=== PATIENT | male | born 1955 | race African-American/Black ===

== ENCOUNTER 2017-01-09 06:57 | Emergency (ER) | payer SELFPAY ==
[~2017-01-09] VITALS: Ht 177.8 cm; Wt 85.0 kg
[2017-01-09 07:02] VITALS: TEMP 36.7
[2017-01-09] MEDS ORDERED: ONDANSETRON INJ 2 MG/ML 2 ML VIAL IV STA ×2 (07:25→10:20)
[2017-01-09] MEDS ORDERED: SODIUM CHLORIDE 0.9% 1000ML 2,000 ML IV STA (07:25)
[2017-01-09] MEDS ORDERED: SODIUM CHLORIDE 0.9% 1000ML 1,000 ML IV STA (07:25)
[2017-01-09] MEDS ORDERED: PRLSR20 PO (07:34)
[2017-01-09] MEDS ORDERED: LISI20TA3 PO (07:34)
[2017-01-09] MEDS ORDERED: DIPH-437 PO (07:34)
[2017-01-09] MEDS ORDERED: NAPR1TAB9 PO (07:34)
[2017-01-09 07:36] LABS: BASO % 1.3 %; BASO ABS # 0.07 K/uL (0-0.2); COMPLETE YES; EOS % 1.8 %; HEMATOCRIT 50.5 % (42-52); IG% 0.2 %; LYMPH ABS # 2.41 K/uL (1.2-3.4); MEAN CELL VOLUME 91.3 fL (80-100); MEAN CORPUSCULAR HEMOGLOBIN 33.3 pg (25-34); MEAN CORPUSCULAR HGB CONC 36.4 g/dl (32-36); MEAN PLATELET VOLUME 10.6 fL (7.4-10.4); MONO % 9.6 %; NEUT % 44.1 %; PLATELET COUNT 262 K/uL (130-400); RED BLOOD COUNT 5.53 M/uL (4.7-6.1)
[2017-01-09 07:57] LABS: BUN/CREATININE RATIO 13.9 (10-20); CALCIUM 9.5 mg/dl (8.5-10.1); CREATININE 1.3 mg/dl (0.60-1.40); POTASSIUM 3.9 mmol/L (3.5-5.1)
--- NOTE | 2017-01-09 08:07 | DIAGNOSTIC IMAGING REPORT ---
PA CHEST WITH ABDOMINAL SERIES CLINICAL HISTORY: Nausea and vomiting. Diarrhea. FINDINGS: A PA chest radiograph is obtained. No prior studies are available for comparison at the time of dictation. The examination is degraded by apical lordotic positioning. The heart is top normal for projection. There is atherosclerotic calcification of the thoracic aorta. The lungs appear hyperinflated and hyperlucent with flattening the diaphragm suggesting obstructive physiology. Minimal bibasilar atelectasis is observed. No airspace consolidation, large pleural effusion, or pneumothorax is seen. The bony thorax is grossly intact. Supine and erect abdominal radiographs are obtained. No prior studies are available for comparison at the time of dictation. There is a nonobstructed abdominal bowel gas pattern. Mild to moderate colonic fecal retention is observed. No intraperitoneal free air is seen. There are no abnormal abdominal calcifications. Surgical clips project over the pelvis. The lumbosacral spine and bony pelvis appear intact. IMPRESSION: 1. Findings suggest obstructive physiology. No acute cardiopulmonary abnormality is seen. 2. Nonobstructed abdominal bowel gas pattern noting mild to moderate colonic fecal retention. Electronically signed by: Jose Antonio Paulson M.D. 01/09/2017 8:06 AM Dictated Date/Time: 01/09/2017 8:03 AM
[2017-01-09 08:08] LABS: BETA-HYDROXYBUTYRATE 0.94 mg/dL (0.2-2.81)
[2017-01-09] MEDS ORDERED: LISINOPRIL 20 MG TAB PO STA (09:47)
--- NOTE | 2017-01-09 11:40 | EMERGENCY ROOM VISIT NOTE ---
History First contact with patient: 07:08 Chief Complaint: VOMITING Stated Complaint: VOMITING Nursing Triage Summary: Patient arrived by ambulance states that he has had n/v/d for 3 days unable to keep his blood pressure medications down. History of Present Illness Patient is a 61-year-old -[place] male who presents to the emergency department by BLS ambulance for evaluation of nausea, vomiting and diarrhea 3 days. 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 He states that there has been a GI illness going through the operating room staff. He states that Thursday evening, 4 nights ago, he came home from work and his stomach was upset. He states he vomited started vomiting Thursday morning. He reports multiple episodes of vomiting with a few episodes of diarrhea. He reports feeling waves of nausea/queasiness. He denies any real abdominal discomfort. He tried sipping on clear liquids including Gatorade. He tried taking Prilosec. He states that he had not vomited for some time, and tried to take his lisinopril this morning, but vomited it up. He reports that he has not had his antihypertensive for several days. He denies any melena, hematochezia or hematemesis. He denies feeling feverish or experiencing chills. He denies any chest pain, palpitations or shortness of breath. No headache, lightheadedness or dizziness. No urinary symptoms. He rates his discomfort a 0/10. Review of Systems Review of systems as per HPI. All other systems reviewed were negative. 10 systems reviewed. Past Medical/Surgical History Medical Problems: (1) History of prostate cancer (2) Hypertension (3) Seasonal allergies Surgical Problems: (1) Amputation finger The patient does not have any old records at our facility for review. Social History Smoking Status: Current Every Day Smoker (one pack of cigarettes per day) Alcohol Use: occasionally Housing Status: lives alone Occupation Status: employed Current/Historical Medications Scheduled Acetaminophen/Diphenhydramine (Tylenol Pm), 1 TAB PO HS Lisinopril (Prinivil), 20 MG PO QAM Naproxen (Aleve), 220 MG PO BID Omeprazole (Prilosec), 20 MG PO DAILY Allergies Coded Allergies: No Known Allergies (Unverified , 01/09/17) Physical Exam Vital Signs Date Time Temp Pulse Resp B/P Pulse Ox O2 Delivery O2 Flow Rate FiO2 01/09/17 13:33 98 16 168/99 93 Room Air 01/09/17 11:45 102 15 149/88 93 Room Air 01/09/17 10:20 112 18 164/111 95 Room Air 01/09/17 09:13 96 16 182/95 90 Room Air 01/09/17 08:13 100 20 156/83 97 Room Air 01/09/17 07:08 135 01/09/17 07:02 36.7 128 20 181/130 96 Room Air Physical Exam CONSTITUTIONAL: Patient is a pleasant, well-appearing 61-year-old - [place] male who is awake and alert and in no acute distress. He is noted to be tachycardic with a heart rate in the 110s to 120s, blood pressure 181/130 on arrival. EYES: Pupils equal, round, reactive to light and accommodation. EOMs intact without nystagmus. Sclera are anicteric. ENT: Tympanic membranes intact, with normal landmarks. External canals are clear. Oral and nasopharynx are clear. Mucous membranes are moist, no lesions , tongue and gums appear normal. CARDIOVASCULAR: Tachycardic rate and rhythm, with normal S1 and S2, no murmur or gallop or rub is heard. No carotid bruits auscultated. No JVD. Peripheral pulses easy to palpable. RESPIRATORY: Breath sounds equal and clear to auscultation without wheezes, rales, or rhonchi heard. Full and equal chest expansion without accessory muscle use or retractions. GI: Bowel sounds are present. Abdomen is soft, nontender, nondistended. No organomegaly. No pulsatile masses. No guarding or rebound. MUSCULOSKELETAL: Full range of motion of extremities x 4 with good strength. No cyanosis, edema, joint tenderness or swelling. No deformity. INTEGUMENTARY: No lesions or rash, normal skin turgor. NEUROLOGICAL: Alert, oriented, and cooperative. Cranial nerves, sensation and strength grossly intact. Pupils round, equal, and react to light, EOMs are full. LYMPH: No lymphadenopathy. Medical Decision & Procedures ER Provider Diagnostic Interpretation: PA CHEST WITH ABDOMINAL SERIES CLINICAL HISTORY: Nausea and vomiting. Diarrhea. FINDINGS: A PA chest radiograph is obtained. No prior studies are available for comparison at the time of dictation. The examination is degraded by apical lordotic positioning. The heart is top normal for projection. There is atherosclerotic calcification of the thoracic aorta. The lungs appear hyperinflated and hyperlucent with flattening the diaphragm suggesting obstructive physiology. Minimal bibasilar atelectasis is observed. No airspace consolidation, large pleural effusion, or pneumothorax is seen. The bony thorax is grossly intact. Supine and erect abdominal radiographs are obtained. No prior studies are available for comparison at the time of dictation. There is a nonobstructed abdominal bowel gas pattern. Mild to moderate colonic fecal retention is observed. No intraperitoneal free air is seen. There are no abnormal abdominal calcifications. Surgical clips project over the pelvis. The lumbosacral spine and bony pelvis appear intact. IMPRESSION: 1. Findings suggest obstructive physiology. No acute cardiopulmonary abnormality is seen. 2. Nonobstructed abdominal bowel gas pattern noting mild to moderate colonic fecal retention. Laboratory Results 01/09/17 07:05 Red Blood Count 5.53, Mean Corpuscular Volume 91.3, Mean Corpuscular Hemoglobin 33.3, Mean Corpuscular Hemoglobin Concent 36.4, Mean Platelet Volume 10.6, Neutrophils (%) (Auto) 44.1, Lymphocytes (%) (Auto) 43.0, Monocytes (%) (Auto) 9.6, Eosinophils (%) (Auto) 1.8, Basophils (%) (Auto) 1.3, Neutrophils # (Auto) 2.47, Lymphocytes # (Auto) 2.41, Monocytes # (Auto) 0.54, Eosinophils # (Auto) 0.10, Basophils # (Auto) 0.07 01/09/17 07:05 Test 01/09/17 07:05 01/09/17 13:28 White Blood Count 5.60 K/uL (4.8-10.8) Red Blood Count 5.53 M/uL (4.7-6.1) Hemoglobin 18.4 g/dL (14.0-18.0) Hematocrit 50.5 % (42-52) Mean Corpuscular Volume 91.3 fL (80-100) Mean Corpuscular Hemoglobin 33.3 pg (25-34) Mean Corpuscular Hemoglobin Concent 36.4 g/dl (32-36) Platelet Count 262 K/uL (130-400) Mean Platelet Volume 10.6 fL (7.4-10.4) Neutrophils (%) (Auto) 44.1 % Lymphocytes (%) (Auto) 43.0 % Monocytes (%) (Auto) 9.6 % Eosinophils (%) (Auto) 1.8 % Basophils (%) (Auto) 1.3 % Neutrophils # (Auto) 2.47 K/uL (1.4-6.5) Lymphocytes # (Auto) 2.41 K/uL (1.2-3.4) Monocytes # (Auto) 0.54 K/uL (0.11-0.59) Eosinophils # (Auto) 0.10 K/uL (0-0.5) Basophils # (Auto) 0.07 K/uL (0-0.2) RDW Standard Deviation 46.2 fL (36.4-46.3) RDW Coefficient of Variation 13.7 % (11.5-14.5) Immature Granulocyte % (Auto) 0.2 % Immature Granulocyte # (Auto) 0.01 K/uL (0.00-0.02) Anion Gap 14.0 mmol/L (3-11) Est Creatinine Clear Calc Drug Dose 60.1 ml/min Estimated GFR () 67.3 Estimated GFR (Non- 58.1 BUN/Creatinine Ratio 13.9 (10-20) Calcium Level 9.5 mg/dl (8.5-10.1) Total Bilirubin 0.9 mg/dl (0.2-1) Aspartate Amino Transf (AST/SGOT) 158 U/L (15-37) Alanine Aminotransferase (ALT/SGPT) 134 U/L (12-78) Alkaline Phosphatase 91 U/L (45-117) Total Protein 8.5 gm/dl (6.4-8.2) Albumin 4.2 gm/dl (3.4-5.0) Globulin 4.3 gm/dl (2.5-4.0) Albumin/Globulin Ratio 1.0 (0.9-2) Lipase 56 U/L (73-393) Beta-Hydroxybutyric Acid 0.94 mg/dL (0.2-2.81) Chemistry Specimen Hemolysis Bedside Glucose 220 mg/dl (70-99) Medications Administered Medications (Trade) Dose Ordered Sig/Steve Route Start Time Stop Time Status Last Admin Dose Admin Sodium Chloride 2,000 ml @ 999 mls/hr Q2H1M STAT IV 01/09/17 07:25 01/09/17 09:25 DC 01/09/17 07:25 999 MLS/HR Sodium Chloride (Nss 1000ml) 1,000 ml @ 250 mls/hr Q4H STAT IV 01/09/17 07:25 01/09/17 11:24 DC 01/09/17 08:28 250 MLS/HR Ondansetron HCl (Zofran Inj) 4 mg NOW STAT IV 01/09/17 07:25 01/09/17 07:27 DC 01/09/17 07:37 4 MG Lisinopril (Zestril Tab) 20 mg NOW STAT PO 01/09/17 09:47 01/09/17 09:48 DC 01/09/17 10:20 20 MG Ondansetron HCl (Zofran Inj) 4 mg NOW STAT IV 01/09/17 10:20 01/09/17 10:21 DC 01/09/17 10:39 4 MG Ondansetron HCl (ZOFRAN ODT 4MG Home Pack) 1 homepack UD ONCE PO 01/09/17 11:45 01/09/17 11:46 DC 01/09/17 11:47 1 HOMEPACK Promethazine HCl (Phenergan 25MG Home Pack) 1 homepack UD ONCE PO 01/09/17 11:45 01/09/17 11:46 DC 01/09/17 11:47 1 HOMEPACK Insulin Human Regular (novoLIN-R U-100 PER UNIT) 10 units NOW STAT SC 01/09/17 12:20 01/09/17 12:21 DC 01/09/17 12:34 10 UNITS ECG Indication: tachycardia Rate (beats per minute): 120 Rhythm: sinus tachycardia Findings: RBBB Comparison ECG Date: no prior available Change: Possible left atrial enlargement, right bundle-branch block, left anterior fascicular block, nonspecific T-wave abnormality. ED Course The patient was seen and evaluated as above. He has no old records at our facility for review. IV access was obtained. Laboratory studies were collected. He was medicated with a 2 L bolus of normal saline solution, then 250 mL per hour. He was medicated with Zofran 4 mg IV 2. Urine dip, CBC with differential, CMP and lipase were drawn. Acute abdominal series was obtained. EKG had been performed prior to provide her assessment of the patient due to the patient's tachycardia. Findings are as noted above. EKG was reviewed with attending physician. Laboratory studies revealed a normal white count at 5600, with no left shift or bandemia. H&H 18 and 50, platelet count 262,000. Electrolytes sodium 137, potassium 3.9, chloride 97, carbon dioxide 26, BUN 18 and creatinine 1.3. He was noted to be hyperglycemic with a blood sugar of 342 and chemistry. He has slight, nonspecific elevation of his transaminases, remainder of his liver functions are normal. Lipase is not indicative of acute pancreatitis. Urine dip noted 1+ protein and 1+ glucose, negative ketones. No other indicators for infection. Acute abdominal series was obtained. Findings were consistent with pulmonary obstructive pathology, there is no acute cardiopulmonary abnormality noted. Nonobstructive abdominal bowel gas pattern noted [id number] colonic fecal retention. Postsurgical changes were noted. All laboratory and diagnostic imaging studies were reviewed with attending physician. With regards to his elevated blood sugar, he was given Regular Insulin 10 units subcutaneous. His blood sugar was discussed with him. He does report being diagnosed with diabetes in the past, and was placed on metformin, however this caused low blood sugar and his doctor told him to discontinue it. Patient reports that his blood sugars have otherwise been stable. The patient was noted to be hypertensive, but this was largely felt to be related to the fact that he has been unable to keep down his lisinopril for the last several days, in addition to the stress of vomiting and his illness. He was given his scheduled dose here in the emergency department. Patient's blood pressure and heart rate improved with the IV hydration and medications. BSG was rechecked prior to discharge and was 220. Diabetic nurse educator was able to provide the patient with a glucometer and test strips so that he can monitor his blood sugars over the next week until he returns home at which point he can discuss any further testing or medications with his primary care provider. He was advised that he would also need to have his transaminases reevaluated. It was otherwise of the patient's vomiting and diarrhea related to a viral illness. Differential diagnoses also entertained include gastritis, gastroenteritis, infectious versus inflammatory colitis, biliary colic, bowel section, mass or malignancy, among others. The patient was given oral fluids and crackers in the emergency department which he tolerated. His ED workup was reviewed with him. He was instructed to return to the emergency department for any worsening or change in his symptoms, while eating he is scheduled to be here for the next week, and otherwise to follow-up with his doctor when he returns home. He expressed understanding of this and was agreeable. He was given Zofran and Phenergan home pack. Medical Decision See ED course Impression Primary Impression: Nausea, vomiting, and diarrhea Additional Impression: Hyperglycemia Departure Information Patient Instructions My [facility] Additional Instructions Phenergan(promethazine) tablets 25mg: Take one every six hours as needed for nausea. Avoid alcohol, operating machinery or dangerous equipment, working on ladders or roofs, DRIVING, or situations where being under the influence may be dangerous. Zofran(odansetron) tablets 4mg: Take one and allow it to dissolve in your mouth every four to six hours as needed for nausea or vomiting. Acetaminophen(Tylenol) may be used for fever or pain. Use 1000mg every six hours as needed. Avoid using more than 4000mg in a 24 hour period. Rest and drink plenty of fluids as tolerated. Slow sips of water or sports drinks are recommended instead of large amounts all at once. Continue current medications. Once your stomach is settled start with a clear liquid diet (jello, soup broth, etc.) and then advance as tolerated. You should avoid full, heavy meals for about 24 hrs from the time your symptoms resolved. Low carb diet. Check and record BSGs. Return to the ER for persistent vomiting, fevers, abdominal pain, chest pains, difficulty breathing, black or bloody stools, worsening of your condition, or as needed. Follow up with your primary physician when you return home for reevaluation. You had slight elevation of your liver function tests today, as well as an elevated serum glucose and glucose in your urine which will require follow-up. Problem Qualifiers
[2017-01-09] MEDS ORDERED: ONDANSETRON HOME PACK 4MG OD TAB PO ONE (11:45)
[2017-01-09] MEDS ORDERED: PHENERGAN 25MG HOMEPACK PO ONE (11:45)
[2017-01-09] MEDS ORDERED: NovoLIN-R INSULIN PER UNIT CHARGE SC STA (12:20)
[2017-01-09 12:35] VITALS: Ht 177.8 cm; Wt 85.0 kg
[2017-01-09 13:33] VITALS: BP 168/99; PULSE 98; O2SAT 93
== END 2017-01-09 13:43 | disposition home or self-care (01) ==
LOC: C.EDA 07:01
DX: R11.2 Nausea with vomiting, unspecified (principal); R19.7 Diarrhea, unspecified; R73.9 Hyperglycemia, unspecified; I10 Essential (primary) hypertension; F17.200 Nicotine dependence, unspecified, uncomplicated; Z85.46 Personal history of malignant neoplasm of prostate; Z79.899 Other long term (current) drug therapy